=== PATIENT | male | born 1985 | race African-American/Black ===

== ENCOUNTER 2025-03-27 11:51 | Emergency (ER) | payer OTHER ==
[~2025-03-27] VITALS: Ht 188 cm; Wt 87.9 kg
[2025-03-27 11:54] VITALS: BP 156/82; TEMP 97.9; O2SAT 100
== END 2025-03-27 13:37 | disposition home or self-care (01) ==
LOC: M ED 11:51
DX: R03.0 Elevated blood-pressure reading, without diagnosis of hypertension (principal); R00.1 Bradycardia, unspecified